=== PATIENT | female | born 1950 | race Caucasian/White ===

== ENCOUNTER 2017-11-01 06:52 | Inpatient (IN) | payer BC, OTHER ==
[~2017-11-01] VITALS: Ht 157.5 cm; Wt 74.4 kg
[2017-11-01 06:57] VITALS: Ht 157.5 cm; Wt 74.4 kg
[2017-11-01 07:23] LABS: BASOPHIL % 0.7 % (0-2); PLATELET COUNT 289 x10^3mcL (130-400)
[2017-11-01 07:36] LABS: CALCIUM 9.3 mg/dL (8.5-10.1); CARBON DIOXIDE 24.5 mmol/L (21-32); CHLORIDE SERUM 107 mmol/L (98-107); CREATININE SERUM 0.7 mg/dL (0.6-1.0); GFR1 > 60 mL/min; GLUCOSE SERUM 127 mg/dL (74-106); POTASSIUM SERUM 4.1 mmol/L (3.5-5.1); SODIUM SERUM 141 mmol/L (136-145)
[2017-11-01] MEDS ORDERED: SIMVASTATIN40 M1 PO (09:04)
[2017-11-01] MEDS ORDERED: ASPIR LOW81 MG PO (09:05)
[2017-11-01 11:11] VITALS: BP 141/71
[2017-11-01 12:13] LABS: T3 TOTAL 0.95 ng/mL
[2017-11-01 12:33] LABS: FREE T4 0.78 ng/dL (0.76-1.46); FREE THYROXINE INDEX 1.6 ug/dL (1.4-4.5); T4(THYROXINE) 5.2 ug/dL (4.7-13.3)
[2017-11-01 12:36] LABS: MAGNESIUM 1.9 mg/dL (1.8-2.4)
[2017-11-01 14:13] VITALS: BP 105/56
[2017-11-01 14:33] LABS: microscopic required? YES; urine erythrocyte 3+ (NEGATIVE)
[2017-11-01 14:41] LABS: AMPHETAMINE QUAL UR NONE DETECTED (See below)
[2017-11-01 17:22] VITALS: BP 157/68
[2017-11-01 20:18] VITALS: BP 110/65
[2017-11-02 05:15] VITALS: BP 104/67
[2017-11-02 06:47] LABS: CALCIUM 9.2 mg/dL (8.5-10.1); CARBON DIOXIDE 27.3 mmol/L (21-32); CHLORIDE SERUM 107 mmol/L (98-107); CREATININE SERUM 0.6 mg/dL (0.6-1.0); GFR1 > 60 mL/min; GLUCOSE SERUM 110 mg/dL (74-106); POTASSIUM SERUM 4.1 mmol/L (3.5-5.1); SODIUM SERUM 142 mmol/L (136-145)
[2017-11-02 06:54] LABS: BASOPHIL % 0.5 % (0-2); PLATELET COUNT 273 x10^3mcL (130-400); RED CELL DISTRIBUTION WIDTH 13.3 % (11.5-14.5)
[2017-11-02 08:32] VITALS: BP 113/61
[2017-11-02 12:13] VITALS: BP 122/64
[2017-11-02 12:32] VITALS: BP 122/64
[2017-11-02] MEDS ORDERED: METOPROLOL SUCC25 M2 PO (15:12)
[2017-11-02] MEDS ORDERED: NOR5 PO (15:13)
[2017-11-02] MEDS ORDERED: ECO81 PO (15:14)
[2017-11-02] MEDS ORDERED: NIT0.4 SL (15:50)
[2017-11-02] MEDS ORDERED: RAN500A PO (15:50)
== END 2017-11-02 16:34 | disposition home or self-care (01) | DRG 282 ==
LOC: ED 06:52 → DU 08:56
PROVIDERS: Emergency Medicine; Family Medicine
DX: I21.4 Non-ST elevation (NSTEMI) myocardial infarction (principal); F17.200 Nicotine dependence, unspecified, uncomplicated; E78.5 Hyperlipidemia, unspecified; R73.03 Prediabetes; E02 Subclinical iodine-deficiency hypothyroidism; Z82.49 Family history of ischemic heart disease and other diseases of the circulatory system
CPT/HCPCS: 83880; 84439; J1650; J3010; J7030; Q0092